=== PATIENT | female | born 1980 | race Caucasian/White ===

== ENCOUNTER 2024-06-15 15:59 | Emergency (ER) | payer MEDICAID, SELFPAY ==
[2024-06-15 16:08] VITALS: BP 132/97; PULSE 100; RESP 14; TEMP 37.3; O2SAT 97
--- NOTE | 2024-06-15 16:30 | DI.RAD_ITS ---
Exam(s) XR KNEE LT 3V AP,LAT,AKBAR EXAM: XR KNEE LT 3V AP,LAT,AKBAR CLINICAL HISTORY: knee pain. TECHNIQUE: 2D digital imaging was performed. COMPARISON: No exams were available for comparison FINDINGS: 3 views No evidence fracture nor prominent joint effusion. There is some degenerative change in the medial compartment noted. Mild medial joint space narrowing , small degenerative subarticular cysts in the outer aspect of the medial tibial plateau, and small m arginal osteophyte noted. Lateral compartment appears unremarkable. There are no osteochondral defe cts evident. Bone density normal. No osseous lesions. IMPRESSION: Some degenerative changes evident in the medial compartment. DATA REPOSITORY: RADIATION DOSE DELIVERED:
--- NOTE | 2024-06-15 16:30 | DI.RAD_ITS ---
Exam(s) XR LUMBAR SPINE COMPLETE EXAM: XR LUMBAR SPINE COMPLETE CLINICAL HISTORY: back pain, left leg pain. TECHNIQUE: 2D digital imaging was performed. COMPARISON: No exams were available for comparison FINDINGS: Five views There is no evidence of fracture, listhesis, nor pars defects. There is moderate-advanced disc space narrowing at L5-S1 level and more moderate disc space narrowing at L4-5 level. Other disc spaces above this exhibit normal height. There is no scoliosis. Facet j oints appear unremarkable. Sacroiliac joints appear unremarkable. Bone density normal. No osseous lesions. IMPRESSION: Degenerative disc disease with disc space narrowing at L4-5 and L5-S1 levels. If there is a history of sciatica then follow-up MRI can be performed. DATA REPOSITORY: RADIATION DOSE DELIVERED:
--- NOTE | 2024-06-15 16:45 | W.ED.GENAD ---
Discharge Plan Disposition Patient Disposition: Home Condition: Stable Discharge Details Clinical Impression: Degenerative arthritis of left knee, Degenerative arthritis of lumbar spine Primary Care Provider: Unknown,Unknown ED Provider: Viola López Home Meds and New Rx's Prescriptions: New tramadol 50 mg tablet 50 mg PO BID PRN (Reason: pain) Qty: 10 0RF Rx Instructions: Take one tablet by mouth twice daily as needed for moderate to severe pain diclofenac sodium 1 % gel 2 g topical QID PRN (Reason: joint pain) Qty: 100 0RF Rx Instructions: apply to single knee, lower back; 4 times daily as needed No Action hydroxyzine HCl 50 mg tablet 50 mg PO BID fluoxetine 40 mg capsule 40 mg PO DAILY clonazepam 1 mg tablet 1 mg PO QHS Rx Instructions: administer 30 minutes before bedtime Discharge Instructions Instructions: Osteoarthritis, Knee pain Additional Instructions: X-ray shows degenerative changes of your L-spine and knee joint. Please take the medications as directed. Apply the topical cream up to 4 times daily. Take the tramadol twice daily as needed for moderate to severe pain. No driving or operating heavy machinery while on this medication as it may make you sleepy. Follow up with primary care provider in 3-5 days. Return to ED sooner if any worsening or concerns. Please take Tylenol or Ibuprofen with food every 4-6 hours as needed for pain and swelling. Use the hinged knee brace and crutches with weightbearing advance as tolerated for comfort. May also follow-up with orthopedics if no improvement with rest ice compression elevation. Referrals: Primary Care Provider [Outside] - 5 days Leonardo Valverde MD [ [facility] STAFF PHYSICIAN] - 2 weeks HPI General Mode of arrival: ambulatory. Date/Time Provider Initiated Documentation: 06/15/24 16:20. Limitations to Documentation: no limitations. Information obtained by: patient, RN notes reviewed and old records reviewed. HPI Narrative: 44 year old female presents to the ED with cc of left knee pain and lower back pain which has been ongoing for a while. She reports she may have twisted it yesterday while walking in her driveway. She reports that today she was standing and her knee almost gave out and she heard a pop. She reports that she has been given some medication that she did not take from her primary care provider. And that she is getting the run around from her PCP. She does have a history of obesity. Denies any problems urinating burning with urination or any other associated symptoms. Related Data Home Medications ?Medication ?Instructions ?Recorded ?Confirmed clonazepam 1 mg tablet 1 mg PO QHS 06/15/24 06/15/24 diclofenac sodium 1 % topical gel 2 g topical QID PRN joint pain 06/15/24 #100 grams fluoxetine 40 mg capsule 40 mg PO DAILY 06/15/24 06/15/24 hydroxyzine HCl 50 mg tablet 50 mg PO BID 06/15/24 06/15/24 tramadol 50 mg tablet 50 mg PO BID PRN pain #10 tabs 06/15/24 Previous Rx's ?Medication ?Instructions ?Recorded diclofenac sodium 1 % topical gel 2 g topical QID PRN joint pain 06/15/24 #100 grams tramadol 50 mg tablet 50 mg PO BID PRN pain #10 tabs 06/15/24 Allergies Allergy/AdvReac Type Severity Reaction Status Date / Time diphenhydramine (From Allergy Intermediate Unknown Verified 06/15/24 16:12 Benadryl) General Stated Complaint: Orthopedic LEXIE: 4 Review of Systems All systems reviewed & are unremarkable except as noted in HPI and below Musculoskeletal Musculoskeletal: Reports as per HPI, Reports back pain, Reports arthralgias (left knee) and Reports numbness (intermittenly left foot) Neurologic Neurologic: Reports numbness (intermittenly left foot) Exam Narrative Exam Narrative: Constitutional: Alert and oriented x3. Appears stated age. Obese body habitus. Head: Normocephalic, no trauma. Musculoskeletal: Unable to assess gait anterior distal knee tenderness to palpation, no crepitus or swelling. No obvious deformity no warmth. No erythema. Skin: No suspicious rashes or lesions. Capillary refill less than 2 sec. Neurologic: Cranial nerves II-XII intact. Alert and oriented x 3. Motor: No deficits noted. Sensory: Intact bilaterally all 4 extremities. Hematologic/Lymphatic: No ecchymosis, no lymphadenopathy. Course Vital Signs Vital signs: Vital Signs Temperature 37.3 C 06/15/24 16:08 Pulse 100 H 06/15/24 16:08 Respiratory Rate 14 06/15/24 16:08 Blood Pressure 132/97 H 06/15/24 16:08 Pulse Oximetry 97 06/15/24 16:08 Temperature 37.3 C 06/15/24 16:08 Temperature Source Skin 06/15/24 16:08 Pulse 100 H 06/15/24 16:08 Respiratory Rate 14 06/15/24 16:08 Respiratory Effort Normal 06/15/24 16:15 Blood Pressure 132/97 H 06/15/24 16:08 Blood Pressure Position Supine 06/15/24 16:08 Pulse Oximetry 97 06/15/24 16:08 Oxygen Delivery Method Room Air 06/15/24 16:08 Oxygen Flow Rate 0 06/15/24 16:08 Pain Level 8 06/15/24 16:08 Medical Decision Making 44 year old female presents to the ED with cc of left knee pain and lower back pain which has been ongoing for a while. She reports she may have twisted it yesterday while walking in her driveway. She reports that today she was standing and her knee almost gave out and she heard a pop. She reports that she has been given some medication that she did not take from her primary care provider. And that she is getting the run around from her PCP. She does have a history of obesity. Denies any problems urinating burning with urination or any other associated symptoms. X-ray L-spine and left knee ordered. Xrays show Degenerative changes of medial knee compartment and disc narrowing at L4-L5. See results below. Will place patient in hinged knee brace and give crutches and refer to Orthopedics and PCP regarding further eval and treatment. This text was generated using Cogniscanation system, please disregard any oddities of phrase or misspellings. Imaging Data Radiologic Study: Imaging: X-Ray Radiologist's impression: EXAM: XR KNEE LT 3V AP,LAT,AKBAR CLINICAL HISTORY: knee pain. TECHNIQUE: 2D digital imaging was performed. COMPARISON: No exams were available for comparison FINDINGS: 3 views No evidence fracture nor prominent joint effusion. There is some degenerative change in the medial compartment noted. Mild medial joint space narrowing, small degenerative subarticular cysts in the outer aspect of the medial tibial plateau, and small marginal osteophyte noted. Lateral compartment appears unremarkable. There are no osteochondral defects evident. Bone density normal. No osseous lesions. IMPRESSION: Some degenerative changes evident in the medial compartment. Radiologic Study #2: Imaging: X-Ray Radiologist's impression: XR LUMBAR SPINE COMPLETE EXAM: XR LUMBAR SPINE COMPLETE CLINICAL HISTORY: back pain, left leg pain. TECHNIQUE: 2D digital imaging was performed. COMPARISON: No exams were available for comparison FINDINGS: Five views There is no evidence of fracture, listhesis, nor pars defects. There is moderate-advanced disc space narrowing at L5-S1 level and more moderate disc space narrowing at L4-5 level. Other disc spaces above this exhibit normal height. There is no scoliosis. Facet joints appear unremarkable. Sacroiliac joints appear unremarkable. Bone density normal. No osseous lesions. IMPRESSION: Degenerative disc disease with disc space narrowing at L4-5 and L5-S1 levels. If there is a history of sciatica then follow-up MRI can be performed. Quality:[facility] Health Related Social Needs: No Data to Display PFSH All Active Problems (Updated 06/15/24 @ 18:38 by Viola López NP) Degenerative arthritis of lumbar spine (Acute) Degenerative arthritis of left knee (Acute) Social History Smoking/Tobacco Use Status: Never Smoking risk assessment performed?: Yes Alcohol Intake: never Substance use type: does not use Housing: apartment Do you feel safe at home: Yes Do you feel safe in your relationship?: Yes
[2024-06-15] MEDS: Lidocaine 5% Patch 1 PATCH TP (17:01)
[2024-06-15 18:51] VITALS: BP 129/80; PULSE 60; RESP 20; O2SAT 95
== END 2024-06-15 18:42 | disposition home or self-care (01) ==
PROVIDERS: Emergency Provider Registered Nurse Emergency
DX: M25.562 Pain in left knee (principal); M17.12 Unilateral primary osteoarthritis, left knee; M47.816 Spondylosis without myelopathy or radiculopathy, lumbar region
CPT/HCPCS: 73562; 99284; 72110; 99283

== ENCOUNTER 2025-07-23 18:13 | Emergency (ER) | payer MEDICAID, SELFPAY ==
[2025-07-23 18:21] VITALS: BP 170/102; PULSE 88; RESP 18; TEMP 36.6; O2SAT 98
--- NOTE | 2025-07-23 18:30 | DI.RAD_ITS ---
Exam(s) XR KNEE LT 2V AP,LAT EXAM: XR KNEE LT 2V AP,LAT CLINICAL HISTORY: trauma. TECHNIQUE: 2D digital imaging was performed of the left knee. Two images were obtained. And lateral views were obtained. COMPARISON: CR XR KNEE LT 3V AP,LAT,AKBAR from 06/15/2024 FINDINGS: This is a limited series of the left knee with AP and lateral views only. BONES: No acute fracture is present. No bony destructive lesion is seen. JOINTS: There are degenerative changes involving all 3 joint compartments characterized by joint space narrowing and spurring. The findings are most marked in the medial femoral tibial joint. No joint effusion is seen. No loose body. SOFT TISSUE: Normal. IMPRESSION: 1. There is no acute fracture or dislocation. 2. The preliminary [facility] report was reviewed. DATA REPOSITORY: RADIATION DOSE DELIVERED:
--- NOTE | 2025-07-23 18:42 | ED.GENADUL_ITS ---
Discharge Plan Disposition Patient Disposition: Home Condition: Good Discharge Details Clinical Impression: Injury of knee, left Primary Care Provider: Edilia Chavis ED Provider: Adam Urena Home Meds and New Rx's Prescriptions: No Action hydroxyzine HCl 50 mg tablet 50 mg PO BID fluoxetine 40 mg capsule 40 mg PO DAILY clonazepam 1 mg tablet 1 mg PO QHS Rx Instructions: administer 30 minutes before bedtime tramadol 50 mg tablet 50 mg PO BID PRN (Reason: pain) Qty: 10 0RF Rx Instructions: Take one tablet by mouth twice daily as needed for moderate to severe pain diclofenac sodium 1 % gel 2 g topical QID PRN (Reason: joint pain) Qty: 100 0RF Rx Instructions: apply to single knee, lower back; 4 times daily as needed Discharge Instructions Instructions: Knee Sprain (DC) Additional Instructions: You were seen in the emergency department for a left knee injury. We performed an x-ray and there is no obvious cause for your symptoms. I suspect that you have either a sprain to your medial collateral ligament or a possible meniscus injury. The treatment would be the same with rest with a knee immobilizer with crutches or you could use Ajit wrap instead of the knee immobilizer. You take Tylenol and ibuprofen per bottle directions for pain or discomfort. You need to follow-up with an orthopedist for reevaluation and it sounds like you have followed up with departments in the past regarding your knee and you should follow-up with them. If you develop worsening symptoms or have any other concerns please return here. HPI General Date/Time Provider Initiated Documentation: 07/23/25 18:27 . Limitations to Documentation: no limitations . Information obtained by: patient . HPI Narrative: This is a 45-year-old female who presents with a left knee injury. Says she eats she chronically deals with knee pain and has followed up with [facility] in the past. They have not wanted to do surgery on her in the past and she did not have a clear answer for her knee pain. Says that on 06 May a few months ago one of her nephews ran into her left lower knee and it moved her knee funny and she has had pain there since. She denies any other complaints or injuries. Was not getting better so ultimately came to the emergency department for evaluation. Related Data Home Medications ?Medication ?Instructions ?Recorded ?Confirmed clonazepam 1 mg tablet 1 mg PO QHS 06/15/24 4 diclofenac sodium 1 % topical gel 2 g topical QID PRN joint pain 06/15/24 #100 grams fluoxetine 40 mg capsule 40 mg PO DAILY 06/15/2406/03 hydroxyzine HCl 50 mg tablet 50 mg PO BID 06/15/24 tramadol 50 mg tablet 50 mg PO BID PRN pain #10 ta bs 06/15/24 Previous Rx's ?Medication ?Instructions ?Recorded diclofenac sodium 1 % topical gel 2 g topical QID PRN joint pain 06/15/24 #100 grams tramadol 50 mg tablet 50 mg PO BID PRN pain #10 ta bs 06/15/24 Allergies Allergy/AdvReac Type Severity Reaction Status Date / Time diphenhydramine (From Allergy Intermediate Unknown Verified 06/15/24 16:12 Benadryl) General Stated Complaint: Orthopedic LEXIE: 4 Review of Systems Constitutional Constitutional: Denies chills, Denies fever(s) and Denies headache(s) Eyes Eyes: Denies change in vision ENT Ears, Nose, Mouth, and Throat: Denies headache(s) and Denies odynophagia Cardiovascular Cardiovascular: Denies chest pain and Denies dyspnea Respiratory Respiratory: Denies dyspnea Gastrointestinal Gastrointestinal: Denies abdominal pain, Denies diarrhea, Denies nausea, Denies odynophagia and Denies vomiting Genitourinary Genitourinary: Denies dysuria Musculoskeletal Comments: Left knee pain/injury Integumentary/Breasts Skin/Breast: Denies changing lesions Neurologic Neurologic: Denies behavioral changes and Denies headache(s) Psychiatric Psychiatric: Denies behavioral changes Endocrine Endocrine: Denies heat intolerance Hematologic/Lymphatic Hematologic/Lymphatic: Denies lymphadenopathy Exam Const General: cooperative Nutritional Appearance: average body habitus Orientation: alert, awake and oriented x3 HENMT Head: normal to inspection Ears: external ears normal Mouth: moist mucous membranes Eyes Pupils: PERRL EOM: EOM intact bilaterally and No nystagmus Neck Neck: full ROM and no tracheal deviation Chest Chest: normal inspection of the chest Resp Auscultation: clear to auscultation bilaterally Cardio Rate: regular rate Rhythm: regular rhythm GI Inspection: normal to inspection Palpation: soft, no guarding, not rigid and nontender Back/Spine/Pelvis Back: No no CVA tenderness Thoracic/Lumbar Spine: thoracic and lumbar spine normal to inspection Skin General skin exam: no rashes or lesions noted Neuro General: patient alert, patient awake and patient oriented x3 Cranial Nerves: CN's II-XI intact bilaterally, PERRL and no nystagmus Cognition: normal cognition Motor: muscle tone normal throughout and strength 5/5 throughout Sensory Exam: no sensory deficits noted Extrem General: normal to inspection Other: Tenderness to the anterior left knee. No laxity on anterior or posterior drawer sign. No laxity with varus or valgus stress of the knee. No redness or warmth to the knee. No significant swelling. Normal straight leg raise test. Otherwise unremarkable left knee examination. No other extremity tenderness. Compartments of the lower extremity are soft. Circulation sensation and motor intact in the bilateral lower extremities. Course Vital Signs Vital signs: Vital Signs Temperature 36.6 C 07/23/25 18:21 Pulse 88 07/23/25 18:21 Respiratory Rate 18 07/23/25 18:21 Blood Pressure 170/102 H 07/23/25 18:21 Pulse Oximetry 98 07/23/25 18:21 Temperature 36.6 C 07/23/25 18:21 Temperature Source Oral 07/23/25 18:21 Pulse 88 07/23/25 18:21 Respiratory Rate 18 07/23/25 18:21 Blood Pressure 170/102 H 07/23/25 18:21 Blood Pressure Position Sitting 07/23/25 18:21 Pulse Oximetry 98 07/23/25 18:21 Oxygen Delivery Method Room Air 07/23/25 18:21 Oxygen Flow Rate 0 07/23/25 18:21 Medical Decision Making 45-year-old female presents with isolated left knee injury. Likely sprain or strain or could be osteoarthritis. Obtained plain film and no obvious fracture or dislocation. Given analgesia here. Recommended knee immobilizer and crutches and follow-up with orthopedics. Says she already has a knee immobilizer and crutches at home and she will resume these. She previously followed up with [facility] orthopedics and says she will give them a call for reevaluation of her knee. Will discharge with return precautions. Medical Records Medical records reviewed: Yes I reviewed the patient's medical records. Imaging Data Radiologic Study: Attestation: I personally reviewed and interpreted this imaging study as follows: Imaging: X-Ray (left knee) My impression: Unremarkable PFSH All Active Problems Injury of knee, left (Acute) Social History Smoking/Tobacco Use Status: Never Smoking risk assessment performed?: Yes Alcohol Intake: never Drug use: Never Substance use type: does not use Housing: apartment Do you feel safe at home: Yes Do you feel safe in your relationship?: Yes
[2025-07-23] MEDS: Ketorolac 30 MG/ML VIAL IM (18:50)
[2025-07-23] MEDS: Acetaminophen 500 MG TAB 1000 MG PO (18:50)
--- NOTE | 2025-07-23 19:53 | DI.[facility]_ITS ---
PROCEDURE INFORMATION: Exam: XR Left Knee Exam date and time: 07/23/2025 7:00 PM Age: 45 years old Clinical indication: Other: Trauma TECHNIQUE: Imaging protocol: Radiologic exam of the left knee. Views: 1 or 2 views. COMPARISON: CR XR KNEE LT 3V AP,LAT,AKBAR 06/15/2024 5:37 PM FINDINGS: Bones/joints: Mild osteoarthritis. No acute fracture. Soft tissues: Normal. IMPRESSION: 1. No acute fracture. 2. Mild osteoarthritis. Dictated and Authenticated by: Amanuel Sherman MD. Orderin Ayanna Medina MD
== END 2025-07-23 20:20 | disposition home or self-care (01) ==
PROVIDERS: Emergency Provider Student in an Organized Health Care Education/Training Program; PCP Physician Assistant Medical
DX: S89.82XA Other specified injuries of left lower leg, initial encounter (principal); W22.8XXA Striking against or struck by other objects, initial encounter
CPT/HCPCS: 99283; 99284; 96372; 73560; J1885